=== PATIENT | female | born 1985 | race Caucasian/White ===

== ENCOUNTER 2017-02-26 11:46 | Emergency (ER) | payer OTHER ==
[2017-02-26 12:01] VITALS: TEMP 98
--- NOTE | 2017-02-26 13:11 | XR ---
EXAMINATION TYPE: XR knee complete RT DATE OF EXAM: 02/26/2017 12:55 PM COMPARISON: NONE HISTORY: Right knee pain after fall on the patient's back a couple days prior. TECHNIQUE: 3 views of the right knee were performed. FINDINGS: Small suprapatellar joint effusion is noted. There is no evidence of fracture or dislocatio n. Bone mineralization is unremarkable for the patient's age. No suspicious osseous lesion is identif ied. IMPRESSION: No evidence of fracture or dislocation.
--- NOTE | 2017-02-26 13:13 | ED ---
Lower Extremity Injury HPI - General Chief Complaint: Extremity Injury, Lower Stated Complaint: Fall/6 months preg Time Seen by Provider: 02/26/17 12:27 Source: patient Mode of arrival: wheelchair Limitations: no limitations - History of Present Illness Initial Comments: Patient is a 31-year-old female stating she is 6 months , presenting to the emergency department with complains of right knee pain. Patient states she had an episode of lightheadedness 2 days ago which went from a sitting to a standing position and felt her legs giving out. Patient denies loss of consciousness but states she fell backwards and somehow injured her right knee. Patient complains of pain especially to the medial aspect of her right knee associated with some swelling. Patient states that pain has gotten progressively worse over the last couple days and patient has been unable to be a weight on her right lower extremity. Patient denies previous injury or surgery to her right knee. Patient denies previous episode of lightheadedness during her . Patient denies recent illness, fevers, shortness of breath, chest pain, abdominal pain, diarrhea or constipation, urinary urgency, hematuria, or dysuria. Patient denies numbness or tingling. Patient states she has been elevating her right knee as much as possible and used ice for comfort along with some Tylenol. Patient states she can't take ibuprofen secondary to be . - Related Data Home Medications Medication Instructions Recorded Confirmed ALPRAZolam [Xanax] mg PO Q8HR 05/01/16 05/01/16 Lisinopril [Prinivil] 5 mg PO DAILY 05/01/16 05/01/16 Allergies Allergy/AdvReac Type Severity Reaction Status Date / Time No Known Allergies Allergy Verified 02/26/17 12:01 Review of Systems ROS Statement: Those systems with pertinent positive or pertinent negative responses have been documented in the HPI. ROS Other: All systems not noted in ROS Statement are negative. Past Medical History Past Medical History: Hypertension Additional Past Medical History / Comment(s): Chronic back pain History of Any Multi-Drug Resistant Organisms: None Reported Past Surgical History: Hernia Repair Past Psychological History: Anxiety Smoking Status: Current every day smoker Past Alcohol Use History: Occasional Past Drug Use History: None Reported General Exam Limitations: no limitations General appearance: alert, in no apparent distress Head exam: Present: atraumatic, normocephalic, normal inspection Eye exam: Present: normal appearance. Absent: scleral icterus, conjunctival injection ENT exam: Present: normal exam, mucous membranes moist, TM's normal bilaterally , normal external ear exam Neck exam: Present: normal inspection, full ROM. Absent: tenderness, lymphadenopathy Respiratory exam: Present: normal lung sounds bilaterally. Absent: respiratory distress, wheezes, rales, rhonchi Cardiovascular Exam: Present: regular rate, normal rhythm, normal heart sounds GI/Abdominal exam: Present: soft, normal bowel sounds. Absent: distended, tenderness Right Upper Leg exam: Present: normal inspection, full ROM. Absent: tenderness, swelling Knee exam: Present: tenderness (Tenderness to medial aspect of right knee), swelling (Mild swelling to medial aspect of right knee). Absent: full ROM ( Secondary to pain), ecchymosis, deformity Lower Leg exam: Present: normal inspection, full ROM. Absent: tenderness, swelling Ankle exam: Present: normal inspection, full ROM. Absent: tenderness, swelling Foot/Toe exam: Present: normal inspection, full ROM. Absent: tenderness, swelling Neurovascular tendon exam: Present: no vascular compromise. Absent: pulse deficit, abnormal cap refill, motor deficit, sensory deficit, tendon deficit, extremity cold to touch, pallor, abnormal 2-point discrimination, decreased fine /light touch, foot drop, significant pain with passive ROM of distal joint Gait: not tested/not observed Back exam: Present: normal inspection, full ROM. Absent: tenderness, paraspinal tenderness, vertebral tenderness Neurological exam: Present: alert, oriented X3, other (No focal deficits noted) Psychiatric exam: Present: normal affect, normal mood Skin exam: Present: warm, dry, intact, normal color. Absent: rash Course Vital Signs 02/26/17 12:00 Temperature 98.0 F Pulse Rate 77 Respiratory 20 Rate Blood Pressure 130/59 O2 Sat by Pulse 100 Oximetry Medical Decision Making - Medical Decision Making Right knee strain with small joint effusion. Patient placed in a knee immobilizer and provided prescription for crutches. Patient instructed to continue icing and elevating the wrist directed. Continue Tylenol for pain. Patient instructed to follow-up with orthopedic surgeon. Patient started to return to the emergency department if symptoms do not improve or get worse. - Radiology Data Radiology results: report reviewed Right knee x-ray: Small suprapatellar joint effusion is noted. No evidence of fracture dislocation. No suspicious osseous lesion is identified. Disposition Clinical Impression: Strain of right knee, Joint effusion of knee Disposition: HOME SELF-CARE Condition: Good Instructions: Knee Sprain (ED) Additional Instructions: Avoid activity that causes pain Ice 20 minutes 4 times a day usually for 2-3 days Keep elevated as much as possible 24-48 hours. Use knee immobilizer until pain subsides, remove when not ambulatory Continue Tylenol for pain. Return to the emergency department with symptoms of increased swelling, pain, numbness, tingling, or foot feeling cold to touch. Follow-up with primary service and orthopedic service as directed. Referrals: June Canchola MD [Primary Care Provider] - 1-2 days Neymar Cantu DO [Doctor of Osteopathic Medicine] - 1-2 days Time of Disposition: 13:21
[2017-02-26 13:34] VITALS: BP 124/61; PULSE 78; RESP 16
== END 2017-02-26 13:34 | disposition home or self-care (01) ==
LOC: EC 11:46
DX: O9A.212 Injury, poisoning and certain other consequences of external causes complicating pregnancy, second trimester (principal); S86.911A Strain of unspecified muscle(s) and tendon(s) at lower leg level, right leg, initial encounter; O99.89 Other specified diseases and conditions complicating pregnancy, childbirth and the puerperium; M25.461 Effusion, right knee; O16.2 Unspecified maternal hypertension, second trimester; O99.342 Other mental disorders complicating pregnancy, second trimester; F41.9 Anxiety disorder, unspecified; O99.332 Smoking (tobacco) complicating pregnancy, second trimester; F17.200 Nicotine dependence, unspecified, uncomplicated; Z3A.24 24 weeks gestation of pregnancy; Z79.899 Other long term (current) drug therapy; W19.XXXA Unspecified fall, initial encounter
CPT/HCPCS: 99283; 73562; L1830

== ENCOUNTER 2019-01-11 19:07 | Outpatient (CLI) | payer OTHER ==
[2019-01-11] MEDS ORDERED: LACTATED RINGERS 1,000 ML IV SCH (19:45)
[2019-01-11 19:53] LABS: Appearance,Urine Cloudy (Clear); Bacteria,Urine Rare /hpf; Bilirubin,Urine Negative (Negative); Blood,Urine Negative (Negative); Color,Urine Yellow; Glucose,Urine (UA) Negative (Negative); Ketones,Urine Negative (Negative); Leukocyte Esterase,Urine Negative (Negative); Mucus,Urine Few /hpf; Nitrite,Urine Negative (Negative); Protein,Urine Trace (Negative); RBC,Urine 3 /hpf (0-5); Specific Gravity,Urine 1.023 (1.001-1.035); Squamous Epithelial Cell,Urine 2 /hpf (0-4); WBC,Urine 3 /hpf (0-5)
[2019-01-11 20:31] VITALS: RESP 18; TEMP 97.5
[2019-01-11 20:45] VITALS: BP 121/58; PULSE 80
--- NOTE | 2019-02-09 11:36 | P.MSEPDOC ---
Presenting Problems - Arrival Data Date of Arrival on Unit: 01/11/19 Time of Arrival on Unit: 19:13 Mode of Transport: Wheelchair - Complaint OB-Reason for Admission/Chief Complaint: Pain Comment: abd and back pain Medical History - Information : 5 Para: 4 Term: 4 : 0 Abortions: Spontaneous or Elective: 0 Number of Living Children: 4 - Gestational Age Gestational Age by WESLY (wks/days): 20 Weeks and 4 Days - History Complications: Smoker Review of Systems - Review of Systems Constitutional: No problems Breast: No problems ENT: No problems Cardiovascular: No problems Respiratory: No problems Gastrointestinal: No problems Genitourinary: No problems Musculoskeletal: No problems Neurological: No problems Skin: No problems Vital Signs - Temperature Temperature: 97.5 F Temperature Source: Temporal Artery Scan - Pulse Right Pulse Rate: 80 Pulse Assessment Method: Automatic Cuff - Respirations Respiratory Rate: 18 - Blood Pressure Right Arm Blood Pressure: 121/58 Blood Pressure Mean: 79 Blood Pressure Source: Automatic Cuff Medical Screen Scoring (Pre) - Cervical Exam Dilation: Exam Deferred Effacement: Exam Deferred Membranes: Intact - Uterine Contractions Frequency: N/A Duration: N/A Intensity: N/A - Maternal Vital Signs Maternal Temperature: N/A Maternal Blood Pressure: N/A Signs of Preeclampsia: N/A Maternal Respirations: N/A - Pain Assessment Pain Location and Character: Left, Lower, Back, Abdomen Pain Scale Used: Numeric (1 - 10) Pain Intensity: 5 Pain Management Goal: 3 Pain Description: *Acute, Aching, Sore Pain Radiation Location: 0 Pain Frequency: Constant Pain Duration: 2 Pain Duration Units: Hours Pain Behavior: Vocalization Effects of Pain: 0 Pain Aggravating Factors: Activity, Standing - Maternal Trauma Maternal Trauma: N/A - Assessment Baseline FHR: 140s - Total Score Total Score (Pre): 0 - Level of Risk Level of Risk: Low (0-5) Physician Notification (Pre) - Physician Notified Physician Notified Date: 01/11/19 Physician Notified Time: 19:25 Physician/Practitioner Notifed:: Dr Barker - Notification Comment Comment: per Emma Duncan RN- reported on pts c/o pain and pressure, hx. Orders to obtain UA, start IV give 1L bolus, and do SVE. Call wtih further orders or needs. Medical Screen Scoring (Post) - Cervical Exam Dilation: 0 cm = 0 Membranes: Intact - Uterine Contractions Frequency: N/A Duration: N/A Intensity: N/A - Maternal Vital Signs Maternal Temperature: N/A Maternal Blood Pressure: N/A Signs of Preeclampsia: N/A Maternal Respirations: N/A - Total Score Total Score (Post): 0 - Post Treatment Level of Risk Post Treatment Level of Risk: Low (0-5) Physician Notification (Post) - Physician Notified Physician Notified Date: 01/11/19 Physician Notified Time: 19:38 Physician/Practitioner Notified:: Dr Barker - Notification Comment Comment: A [place] RN on phone with Dr Barker. Reported on abd soft and non tender, IV. fluids status, SVE closed, UA results. Orders to d/c home with instructions after IV infused. Keep scheduled appt in office. Disposition - Disposition OB Disposition: Discharge to home Discharge Date: 01/11/19 Discharge Time: 21:00 I agree with the RN Medical Screening Exam: Yes Risk & Benefit of care provided described in d/c instruction: Yes Diagnosis: UNSPECIFIED ABDOMINAL PAIN
== END 2019-01-11 21:00 | disposition home or self-care (01) ==
LOC: FBPOP 19:07
PROVIDERS: ATTEND Obstetrics & Gynecology Obstetrics
DX: O99.89 Other specified diseases and conditions complicating pregnancy, childbirth and the puerperium (principal); O99.332 Smoking (tobacco) complicating pregnancy, second trimester; R10.32 Left lower quadrant pain; F17.200 Nicotine dependence, unspecified, uncomplicated; Z3A.20 20 weeks gestation of pregnancy
CPT/HCPCS: 96360; 81001; G0463; 99214

== ENCOUNTER → 2019-02-26 | Outpatient (CLI) | payer OTHER ==
[2019-02-26 13:08] LABS: HCT 33.1 % (34.0-46.0); HGB 10.9 gm/dL (11.4-16.0); MCH 31.7 pg (25.0-35.0); MCHC 33.1 g/dL (31.0-37.0); Mean Platelet Volume 6.8; Platelet Count 267 k/uL (150-450); RBC 3.45 m/uL (3.80-5.40); WBC 15.5 k/uL (3.8-10.6)
== END | disposition home or self-care (01) ==
LOC: LABWHC1 11:32
PROVIDERS: ATTEND Obstetrics & Gynecology Obstetrics
DX: Z36.9 Encounter for antenatal screening, unspecified (principal)
CPT/HCPCS: 36415; 82950; 85027

== ENCOUNTER 2019-05-20 09:52 | Inpatient (IN) | payer OTHER ==
[2019-05-17 14:21] VITALS: BMI 46.5
[2019-05-20] MEDS ORDERED: CITRIC ACID-SODIUM CITRATE 15 ML CUP PO ONE (11:03)
[2019-05-20] MEDS ORDERED: CARBOPROST TROMETHAMINE 250 MCG/ML 1 ML AMP IM PRN (11:03)
[2019-05-20] MEDS ORDERED: ceFAZolin IN SWFI 2 GM/20 ML SYRINGE IVP ONE (11:03)
[2019-05-20] MEDS ORDERED: METHYLERGONOVINE 0.2 MG/ML 1 ML AMP IM PRN (11:03)
[2019-05-20 11:23] LABS: Basophils # (A) 0.1 k/uL (0-0.2); Basophils % (A) 0 %; Eosinophils # (A) 0.3 k/uL (0-0.7); Eosinophils % (A) 2 %; HCT 34.7 % (34.0-46.0); HGB 11.5 gm/dL (11.4-16.0); Lymphocytes # (A) 1.8 k/uL (1.0-4.8); Lymphocytes % (A) 10 %; MCH 30.5 pg (25.0-35.0); MCHC 33.3 g/dL (31.0-37.0); MCV 91.6 fL (80.0-100.0); Mean Platelet Volume 7.7; Monocytes # (A) 0.6 k/uL (0-1.0); Monocytes % (A) 3 %; Neutrophils # (A) 15.5 k/uL (1.3-7.7); Neutrophils % (A) 84 %; Platelet Count 321 k/uL (150-450); RBC 3.79 m/uL (3.80-5.40); RDW 14.1 % (11.5-15.5); WBC 18.4 k/uL (3.8-10.6)
[2019-05-20] MEDS: LACTATED RINGERS 1,000 ML IV SCH ×3 (11:24→15:02)
[2019-05-20 11:33] LABS: Glucose,Whole Blood 95 mg/dL (75-99)
[2019-05-20] MEDS ORDERED: NALBUPHINE 10 MG/ML (1 ML AMP) ONE (12:05)
[2019-05-20] MEDS ORDERED: OXYTOCIN 10 UNIT/ML 1 ML VIAL ONE (12:05)
[2019-05-20] MEDS ORDERED: LACTATED RINGERS 1,000 ML BAG IV ONE (12:05)
[2019-05-20] MEDS ORDERED: MORPHINE SULFATE (PF) 0.3 MG/0.3 ML SYR ONE (12:05)
[2019-05-20] MEDS ORDERED: ONDANSETRON 4 MG/2 ML VIAL ONE (12:05)
[2019-05-20] MEDS ORDERED: diphenhydrAMINE 50 MG/ML 1 ML VIAL IVP PRN ×3 (12:42→12:46)
[2019-05-20] MEDS ORDERED: KETOROLAC 30 MG/ML 1 ML VIAL IVP PRN (12:42)
[2019-05-20] MEDS ORDERED: ONDANSETRON 4 MG/2 ML VIAL IVP PRN ×2 (12:42→12:46)
[2019-05-20] MEDS ORDERED: NALOXONE 0.4 MG/ML 1 ML VIAL IV PRN ×2 (12:42→12:46)
[2019-05-20] MEDS ORDERED: HYDROmorphone 0.5 MG/0.5 ML SYRINGE IVP PRN (12:42)
[2019-05-20] MEDS ORDERED: ACETAMINOPHEN IV (For NPO) 1,000 MG in EMPTY BAG 1 BAG IVPB ONE (12:46)
[2019-05-20] MEDS ORDERED: METOCLOPRAMIDE 5 MG/ML 2 ML VIAL IVP PRN (12:46)
[2019-05-20] MEDS ORDERED: diphenhydrAMINE 50 MG CAP PO PRN (12:46)
[2019-05-20] MEDS ORDERED: ACETAMINOPHEN TAB 325 MG TAB PO PRN (12:46)
[2019-05-20] MEDS ORDERED: diphenhydrAMINE 25 MG CAP PO PRN (12:46)
[2019-05-20] MEDS ORDERED: ZOLPIDEM 5 MG TAB PO PRN (12:46)
[2019-05-20] MEDS ORDERED: IBUPROFEN IV 800 MG in SODIUM CHLORIDE 0.9% 250 ML IV ONE (12:47)
--- NOTE | 2019-05-20 12:53 | P.HPOB ---
History of Present Illness H&P Date: 05/20/19 Chief Complaint: IUP @ 39 0/7 weeks, unstable lie This is a 34-year-old 6 para 4014 at 39-0/7 weeks that presents to labor and delivery for primary with tubal ligation. has been noted to be an unstable lie mostly transverse. Patient elected primary with tubal as she is done with childbearing. Of note patient has been diagnosed with gestational diabetes with this and it has been poorly controlled despite diabetes education. Patient has a history of depression which is controlled with Prozac. Patient has been receiving routine care with myself. Next On bloodwork should a blood type of A+, rubella immune, hepatitis B surface antigen negative, RPR nonreactive, HIV negative, GBS was noted to be positive. Review of Systems Constitutional: Reports fatigue, Denies chills, Denies fever Ears, nose, mouth and throat: Denies headache Cardiovascular: Reports leg edema Respiratory: Denies dyspnea Gastrointestinal: Denies constipation, Denies diarrhea, Denies nausea, Denies vomiting Genitourinary: Reports Past Medical History Past Medical History: Hypertension Additional Past Medical History / Comment(s): Chronic back pain, gestational diabetes-diet control, high BP couple yrs ago, restless legs, varicose veins History of Any Multi-Drug Resistant Organisms: None Reported Past Surgical History: Hernia Repair Past Anesthesia/Blood Transfusion Reactions: Previous Problems w/ Anesthesia, Motion Sickness Additional Past Anesthesia/Blood Transfusion Reaction / Comment(s): spinal headache after epidural- 1st epidural only worked on one side, another epidural did not work Past Psychological History: Anxiety, Depression Additional Psychological History / Comment(s): prozac po. pt has not taken for about 3 weeks Smoking Status: Current every day smoker Past Alcohol Use History: None Reported Additional Past Alcohol Use History / Comment(s): 1/2 PPD, has smoked since age 15 Past Drug Use History: None Reported - Past Family History Mother Family Medical History: Cancer, Coronary Artery Disease (CAD) Father Family Medical History: Cancer, Coronary Artery Disease (CAD) Medications and Allergies Home Medications Medication Instructions Recorded Confirmed Type FLUoxetine HCL [PROzac] 40 mg PO HS 05/17/19 05/20/19 History Cephalexin [Keflex] 500 mg PO 05/20/19 History Allergies Allergy/AdvReac Type Severity Reaction Status Date / Time No Known Allergies Allergy Verified 05/17/19 14:11 Exam Osteopathic Statement: *. No significant issues noted on an osteopathic structural exam other than those noted in the History and Physical/Consult. Vital Signs Temp Pulse Resp BP Pulse Ox 05/20/19 11:03 97.3 F L 101 H 18 131/67 96 Targeted physical exam is performed and the state in general this a well- nourished well-developed female in no acute distress, breathing is noted to be nonlabored her heart has a regular rate and rhythm abdomen is noted to be gravid and large for gestational age, heart tones were noted to be reactive and she is not rachel. Cervical exam is deferred Results Result Diagrams: 05/20/19 10:30 Abnormal Lab Results - Last 24 Hours (Table) 05/20/19 Range/Units 10:30 WBC 18.4 H (3.8-10.6) k/uL RBC 3.79 L (3.80-5.40) m/uL Neutrophils # 15.5 H (1.3-7.7) k/uL Assessment and Plan (1) Term Current Visit: Yes Status: Acute Code(s): Z34.90 - ENCNTR FOR SUPRVSN OF NORMAL , UNSP, UNSP TRIMESTER SNOMED Code(s): 09852756 (2) Gestational diabetes Current Visit: Yes Status: Acute Code(s): O24.419 - GESTATIONAL DIABETES MELLITUS IN , UNSP CONTROL SNOMED Code(s): 28462176 (3) LGA (large for gestational age) fetus Current Visit: Yes Status: Acute Code(s): PQB3490 - SNOMED Code(s): 392927876 (4) Family planning Current Visit: Yes Status: Acute Code(s): Z30.09 - ENCOUNTER FOR OTH GENERAL CNSL AND ADVICE ON CONTRACEPTION SNOMED Code(s): 926467941 (5) Unstable lie of fetus Current Visit: Yes Status: Acute Code(s): O32.0XX0 - MATERNAL CARE FOR UNSTABLE LIE, NOT APPLICABLE OR UNSP SNOMED Code(s): 94170097 Plan: Patient is admitted for primary with tubal ligation given unstable lie and poorly controlled gestational diabetes. Patient is counseled on the surgery and all questions are answered. Risks are reviewed including but not limited to infection, bleeding, damage to bladder, bowel, ureteric injury. Jurgen méndez states understanding and was taken back to the operating suite by anesthesia.
--- NOTE | 2019-05-20 12:57 | P.OP ---
Date of Procedure: 05/20/19 Preoperative Diagnosis: IUP at 39-0/7 weeks, poorly controlled gestational diabetes, unstable lie, family status complete Postoperative Diagnosis: Same plus face presentation Procedure(s) Performed: Primary low transverse section Anesthesia: spinal Surgeon: Adriana Barker Alarm Installation Technician #1: Taylor Ramírez Estimated Blood Loss (ml): 800 IV fluids (ml): 1,000 Urine output (ml): 200 Pathology: other (Placenta) Condition: stable Disposition: observation Indications for Procedure: Unstable lie, poorly controlled gestational babies with a large for gestational age fetus Operative Findings: Normal uterus tubes and ovaries were appreciated male infant delivered at 1220, weight of 9 lbs. 1 oz. with Apgars of 9 and 9 at one and 5 minutes respectively. Description of Procedure: Patient was taken back to the operating suite where spinal anesthesia was placed by the anesthesia department. She was then prepped and draped in normal sterile fashion in the dorsal supine position. A Pfannenstiel skin incision was then made and carried through the underlying layer of fascia. The fascia and then incised in the midline and extended laterally. The anterior aspect of the fascial incision was then grasped with [place] clamps, elevated and underlying rectus muscle was dissected off sharply. Attention was then turned to the inferior aspect of the fascial incision which was grasped with Lewis clamps, elevated and underlying rectus muscles was off once again. The edges muscles were in the midline the peritoneum was identified and entered. This incision was then extended superiorly and inferiorly with good visualization the bladder. Bladder blade was then inserted and the vesicouterine peritoneum was identified and a bladder flap was then created. Hysterotomy incision was then made and the infant was encountered in the uterus and a face presentation converted to vertex delivered in the usual fashion the umbilical cord was then doubly clamped and cut and handed off to awaiting RN. The placenta was then delivered manually the uterus was cleared of all clots and debris. The uterine incision was then closed with 0 Vicryl in a running locked fashion. Hemostasis was appreciated. Attention was then turned to the patient's fallopian tubes the [place] clips were then placed on each tube with good blanching of the tube being noted on both sides. The hysterotomy incision was inspected once again bleeding was noted on the right-hand side of the uterine incision therefore a [id number] suture was used to obtain h emostasis. The uterus was then returned to the abdomen. Once again the hysterotomy site was inspected hemostasis was appreciated the gutters were cleared of all clots and debris. The fascia was then closed with 0 Vicryl in a running fashion from one lateral edge the midline and the other lateral edge the midline. Subcutaneous tissue was then irrigated and hemostasis was appreciated, this continues tissue was then closed with 3-0 Vicryl in a running fashion. The skin was then closed with 4-0 Vicryl in a subcuticular fashion. Steri-Strips and sterile dressings were applied. All counts are correct 2, patient and infant tolerated delivery well
[2019-05-20] MEDS: IBUPROFEN 600 MG TAB PO PRN (20:58)
[2019-05-20] MEDS: HYDROcodone/APAP 5-325MG 1 EACH TAB PO PRN (22:10)
[2019-05-21] MEDS: SENNOSIDES-DOCUSATE SODIUM 1 EACH TAB PO SCH ×3 (00:42→19:54)
[2019-05-21] MEDS: LACTATED RINGERS 1,000 ML IV SCH ×4 (00:43→06:57)
[2019-05-21] MEDS: HYDROcodone/APAP 5-325MG 1 EACH TAB PO PRN ×5 (03:00→22:07)
[2019-05-21] MEDS: FLUoxetine HCL 20 MG CAP PO SCH ×2 (03:06→21:01)
--- NOTE | 2019-05-21 05:50 | P.PN ---
Progress Note - Text Progress Note Date: 05/21/19 Patient doing well. Ambulating without paresthesia or weakness. Denies headache. Pain controlled. Spinal site clean and dry A/P POD#1 s/p with spinal duramorph - doing well
[2019-05-21 07:15] LABS: Basophils # (A) 0.1 k/uL (0-0.2); Basophils % (A) 0 %; Eosinophils # (A) 0.3 k/uL (0-0.7); Eosinophils % (A) 2 %; HCT 32.3 % (34.0-46.0); HGB 10.1 gm/dL (11.4-16.0); Lymphocytes # (A) 1.8 k/uL (1.0-4.8); Lymphocytes % (A) 13 %; MCH 29.9 pg (25.0-35.0); MCHC 31.3 g/dL (31.0-37.0); MCV 95.5 fL (80.0-100.0); Mean Platelet Volume 7.2; Monocytes # (A) 0.5 k/uL (0-1.0); Monocytes % (A) 4 %; Neutrophils # (A) 10.8 k/uL (1.3-7.7); Neutrophils % (A) 79 %; Platelet Count 241 k/uL (150-450); RBC 3.38 m/uL (3.80-5.40); RDW 13.3 % (11.5-15.5); WBC 13.7 k/uL (3.8-10.6)
--- NOTE | 2019-05-21 08:31 | P.PNOBGPC ---
Subjective - Subjective Principal diagnosis: POD 1 LTCS Interval history: Patient is doing well. She states her pain is controlled this morning with oral [place]/ibuprofen. She is ambulating and voiding without difficulty. remains in the nursery on high flow. She is tolerating a regular diet without nausea or vomiting. Patient reports: Reports appetite normal, Reports voiding normally, Reports pain well controlled, Reports ambulating normally [place]: doing well Objective - Vital Signs Latest vital signs: Vital Signs Temp Pulse Pulse Pulse Resp BP Pulse Ox 05/21/19 07:59 98.6 F 69 16 101/56 05/21/19 07:00 98.6 F 69 16 101/56 05/21/19 05:00 16 97 05/21/19 04:00 97.7 F 65 16 97/51 96 05/21/19 03:00 16 05/21/19 01:00 16 98 05/21/19 00:00 97.7 F 69 58 L 16 88/41 98 05/20/19 23:00 16 05/20/19 21:00 16 98 05/20/19 20:00 98.1 F 61 16 104/56 05/20/19 19:00 18 05/20/19 17:42 97 05/20/19 16:45 16 05/20/19 15:42 98.1 F 69 16 114/70 98 05/20/19 14:49 68 16 114/60 98 05/20/19 14:19 72 16 118/64 05/20/19 13:49 73 16 117/71 05/20/19 13:42 69 16 129/78 97 05/20/19 13:34 77 16 134/67 97 05/20/19 13:08 75 16 136/63 97 05/20/19 12:49 97.2 F L 75 16 134/63 05/20/19 12:42 97.2 F L 75 16 134/63 97 05/20/19 11:03 97.3 F L 101 H 18 131/67 96 Intake and Output 05/20/19 05/21/19 05/21/19 22:59 06:59 14:59 Intake Total 480 Output Total 600 650 Balance -600 -650 480 Intake: Oral 480 Output: Urine 600 650 Uretheral (Glass) 300 Other: Voiding Method Indwelling Catheter Indwelling Catheter # Voids 1 - Exam Extremities: Present: normal, edema Abdomen: Present: normal appearance Incision: Present: normal, dry, intact Uterus: Present: normal, firm - Labs Labs: Abnormal Lab Results - Last 24 Hours (Table) 05/20/19 05/21/19 Range/Units 10:30 06:54 WBC 18.4 H 13.7 H (3.8-10.6) k/uL RBC 3.79 L 3.38 L (3.80-5.40) m/uL Hgb 10.1 L (11.4-16.0) gm/dL Hct 32.3 L (34.0-46.0) % Neutrophils # 15.5 H 10.8 H (1.3-7.7) k/uL Assessment and Plan (1) Term Current Visit: Yes Status: Acute Code(s): Z34.90 - ENCNTR FOR SUPRVSN OF NORMAL , UNSP, UNSP TRIMESTER SNOMED Code(s): 82675894 (2) Gestational diabetes Current Visit: Yes Status: Acute Code(s): O24.419 - GESTATIONAL DIABETES MELLITUS IN , UNSP CONTROL SNOMED Code(s): 90979744 (3) LGA (large for gestational age) fetus Current Visit: Yes Status: Acute Code(s): VVL6484 - SNOMED Code(s): 870039086 (4) Family planning Current Visit: Yes Status: Acute Code(s): Z30.09 - ENCOUNTER FOR OT GENERAL CNSL AND ADVICE ON CONTRACEPTION SNOMED Code(s): 222783072 (5) Unstable lie of fetus Current Visit: Yes Status: Acute Code(s): O32.0XX0 - MATERNAL CARE FOR UNSTABLE LIE, NOT APPLICABLE OR UNSP SNOMED Code(s): 82786905 (6) S/P section Current Visit: Yes Status: Acute Code(s): Z98.891 - HISTORY OF UTERINE SCAR FROM PREVIOUS SURGERY SNOMED Code(s): 505794793 Plan: Patient is doing well post operatively. She is ambulating and voiding without difficulty. She does struggle with some pain issues but states her pain is controlled with oral medication. She is encouraged to increase ambulation today. Will continue routine postoperative care
[2019-05-21] MEDS: IBUPROFEN 600 MG TAB PO PRN ×2 (10:20→19:54)
[2019-05-21] MEDS: SIMETHICONE 80 MG CHEWABLE PO PRN (19:55)
[2019-05-22] MEDS: HYDROcodone/APAP 5-325MG 1 EACH TAB PO PRN ×4 (03:35→22:50)
[2019-05-22] MEDS: IBUPROFEN 600 MG TAB PO PRN ×3 (06:28→19:00)
[2019-05-22] MEDS: SENNOSIDES-DOCUSATE SODIUM 1 EACH TAB PO SCH ×2 (08:10→20:59)
--- NOTE | 2019-05-22 08:29 | P.PNOBGPC ---
Subjective - Subjective Principal diagnosis: POD 2 LTCS with TL Interval history: Patient is ambulating and voiding without difficulty. She is tolerating a regular diet without nausea or vomiting. She is using [place]/Motrin for discomfort. She continues to complain of right lower quadrant pain as she did throughout the entire . remains in special care nursery Patient reports: Reports appetite normal, Reports voiding normally, Reports pain well controlled, Reports ambulating normally : doing well (in SCN on high flow oxygen) Objective - Vital Signs Latest vital signs: Vital Signs Temp Pulse Pulse Resp BP Pulse Ox 05/22/19 08:00 97.8 F 81 18 121/63 99 05/21/19 23:37 97.5 F L 77 18 117/63 97 05/21/19 16:00 98.1 F 83 18 118/63 96 05/21/19 12:31 97.9 F 70 14 100/55 Intake and Output 05/21/19 05/22/19 05/22/19 22:59 06:59 14:59 Output Total 0 Balance 0 Output: Stool 0 Other: # Voids 1 1 - Exam Extremities: Present: normal, edema Abdomen: Present: normal appearance, soft Incision: Present: normal, dry, intact Uterus: Present: normal, firm Assessment and Plan (1) Term Current Visit: Yes Status: Acute Code(s): Z34.90 - ENCNTR FOR SUPRVSN OF NORMAL , UNSP, UNSP TRIMESTER SNOMED Code(s): 73309354 (2) Gestational diabetes Current Visit: Yes Status: Acute Code(s): O24.419 - GESTATIONAL DIABETES MELLITUS IN , UNSP CONTROL SNOMED Code(s): 56691791 (3) LGA (large for gestational age) fetus Current Visit: Yes Status: Acute Code(s): GRE6512 - SNOMED Code(s): 599676566 (4) Family planning Current Visit: Yes Status: Acute Code(s): Z30.09 - ENCOUNTER FOR OTH GENERAL CNSL AND ADVICE ON CONTRACEPTION SNOMED Code(s): 476948722 (5) Unstable lie of fetus Current Visit: Yes Status: Acute Code(s): O32.0XX0 - MATERNAL CARE FOR UNSTABLE LIE, NOT APPLICABLE OR UNSP SNOMED Code(s): 89182559 (6) S/P section Current Visit: Yes Status: Acute Code(s): Z98.891 - HISTORY OF UTERINE SCAR FROM PREVIOUS SURGERY SNOMED Code(s): 916750271 Plan: We'll continue routine postoperative care. The right lower quadrant pain that she is experiencing she did experience throughout the entire . I suspect it is normal postoperative pain given her abdomen continues to be sat soft she is eating and voiding without difficulty. I did encourage her to increase ambulation today as I feel that will help her discomfort.
[2019-05-22] MEDS: FLUoxetine HCL 20 MG CAP PO SCH (21:00)
[2019-05-23] MEDS: IBUPROFEN 600 MG TAB PO PRN ×3 (00:53→19:41)
[2019-05-23] MEDS: HYDROcodone/APAP 5-325MG 1 EACH TAB PO PRN ×3 (08:31→22:12)
[2019-05-23] MEDS: SENNOSIDES-DOCUSATE SODIUM 1 EACH TAB PO SCH ×2 (08:31→22:08)
--- NOTE | 2019-05-23 08:33 | P.PNOBGPC ---
Subjective - Subjective Principal diagnosis: POD 3 LTCS with TL Interval history: Patient is continuing to improve, she is ambulating without difficulty and is using her binder. She notes lochia to be minimal. She is able to go outside to smoke despite are urge to discontinue this habit. She is tolerating regular diet without nausea or vomiting. Her pain is controlled with oral [place]/Motrin. Patient reports: Reports appetite normal, Reports voiding normally, Reports pain well controlled, Reports ambulating normally [facility]: doing well, in NICU Objective - Vital Signs Latest vital signs: Vital Signs Temp Pulse Pulse Resp BP Pulse Ox 05/23/19 00:00 98 F 79 18 120/56 99 05/22/19 16:00 98.4 F 91 18 121/67 - Exam Extremities: Present: edema Abdomen: Present: normal appearance, soft Incision: Present: normal, dry, intact Uterus: Present: normal, firm Assessment and Plan (1) Term Current Visit: Yes Status: Acute Code(s): Z34.90 - ENCNTR FOR SUPRVSN OF NORMAL , UNSP, UNSP TRIMESTER SNOMED Code(s): 02326157 (2) Gestational diabetes Current Visit: Yes Status: Acute Code(s): O24.419 - GESTATIONAL DIABETES MELLITUS IN , UNSP CONTROL SNOMED Code(s): 30362890 (3) LGA (large for gestational age) fetus Current Visit: Yes Status: Acute Code(s): FGF3027 - SNOMED Code(s): 715948173 (4) Family planning Current Visit: Yes Status: Acute Code(s): Z30.09 - ENCOUNTER FOR OTH GENERAL CNSL AND ADVICE ON CONTRACEPTION SNOMED Code(s): 538968243 (5) Unstable lie of fetus Current Visit: Yes Status: Acute Code(s): O32.0XX0 - MATERNAL CARE FOR UNSTABLE LIE, NOT APPLICABLE OR UNSP SNOMED Code(s): 65804592 (6) S/P section Current Visit: Yes Status: Acute Code(s): Z98.891 - HISTORY OF UTERINE SCAR FROM PREVIOUS SURGERY SNOMED Code(s): 451718093 Plan: We'll continue routine postoperative care. The right lower quadrant pain that she is experiencing she did experience throughout the entire . I suspect it is normal postoperative pain given her abdomen continues to be sat soft she is eating and voiding without difficulty. I did encourage her to increase ambulation today as I feel that will help her discomfort. On this postop day #3 we'll continue routine postoperative care and anticipate discharge home tomorrow.
[2019-05-23] MEDS: FLUoxetine HCL 20 MG CAP PO SCH (22:08)
[2019-05-23] MEDS: SIMETHICONE 80 MG CHEWABLE PO PRN (22:15)
[2019-05-24] MEDS: IBUPROFEN 600 MG TAB PO PRN ×2 (07:39→13:58)
[2019-05-24] MEDS: SENNOSIDES-DOCUSATE SODIUM 1 EACH TAB PO SCH (07:40)
--- NOTE | 2019-05-24 08:18 | P.DS ---
Providers Date of admission: 05/20/19 09:52 Expected date of discharge: 05/24/19 Attending physician: Adriana Barker Primary care physician: Sushant Watkins - Discharge Diagnosis(es) (1) Term Current Visit: Yes Status: Acute (2) Gestational diabetes Current Visit: Yes Status: Acute (3) LGA (large for gestational age) fetus Current Visit: Yes Status: Acute (4) Family planning Current Visit: Yes Status: Acute (5) Unstable lie of fetus Current Visit: Yes Status: Acute (6) S/P section Current Visit: Yes Status: Acute Hospital Course: This is a 34-year-old 6 para 4014 that presented to labor and delivery at 39-0/7 weeks for primary with tubal ligation. Patient had a noted unstable lie of her fetus for most of the . Patient was requesting C- section with tubal ligation as she is done with childbearing. Patient was diagnosed with gestational diabetes during this and was poorly controlled despite numerous attempts at dietary counseling. For further details please see the dictated H&P. Patient was admitted to labor and delivery was performed without difficulty for further details on the please see the operative report. Patient delivered a viable male at 1220, weight of 9 lbs. 1 oz. with Apgars of 9 and 9 at one and 5 minutes respectively. Patient's postoperative course has been essentially uneventful. Initially the first 2 days she did note right lower quadrant pain which was consistent with the pain that she had throughout the and was where the head had been for the last few weeks. Patient was given an abdominal binder and was noted to be ambulating and voiding without difficulty. She was able to go outside and smoke despite our request that she discontinue. She is tolerating a regular diet without nausea or vomiting and she is using [place] and Motrin for discomfort. She is bottle feeding. The infant has been in special care nursery with some breathing difficulties and on high flow oxygen. Town Administrator is following. Patient Condition at Discharge: Good Plan - Discharge Summary New Discharge Prescriptions: No Action FLUoxetine HCL [PROzac] 40 mg PO HS Cephalexin [Keflex] 500 mg PO Discharge Medication List FLUoxetine HCL [PROzac] 40 mg PO HS 05/17/19 [History] Cephalexin [Keflex] 500 mg PO 05/20/19 [History] Follow up Appointment(s)/Referral(s): Adriana Barker DO [Doctor of Osteopathic Medicine] - 2 Weeks Patient Instructions/Handouts: (DC), (GEN) Discharge Disposition: HOME SELF-CARE
[2019-05-24] MEDS: HYDROcodone/APAP 5-325MG 1 EACH TAB PO PRN (11:06)
[2019-05-24 16:07] VITALS: BP 132/72; PULSE 80; RESP 16; TEMP 98.3
== END 2019-05-24 18:15 | disposition home or self-care (01) | DRG 785 ==
LOC: 4FBP 09:52
PROVIDERS: ADMIT Obstetrics & Gynecology Obstetrics; ATTEND Obstetrics & Gynecology Obstetrics
PROC: 0UL70CZ Occlusion of Bilateral Fallopian Tubes with Extraluminal Device, Open Approach (ICD-10-PCS; 2019-05-20)
PROC: 10D00Z1 Extraction of Products of Conception, Low, Open Approach (ICD-10-PCS; principal; 2019-05-20 12:00)
DX: O32.3XX0 Maternal care for face, brow and chin presentation, not applicable or unspecified (principal); O32.2XX0 Maternal care for transverse and oblique lie, not applicable or unspecified; O24.420 Gestational diabetes mellitus in childbirth, diet controlled; O36.63X0 Maternal care for excessive fetal growth, third trimester, not applicable or unspecified; O99.334 Smoking (tobacco) complicating childbirth; F17.210 Nicotine dependence, cigarettes, uncomplicated; Z30.2 Encounter for sterilization; Z37.0 Single live birth; Z3A.39 39 weeks gestation of pregnancy; O99.344 Other mental disorders complicating childbirth; F32.9 Major depressive disorder, single episode, unspecified; G25.81 Restless legs syndrome; F41.9 Anxiety disorder, unspecified; G89.29 Other chronic pain; M54.9 Dorsalgia, unspecified; I83.90 Asymptomatic varicose veins of unspecified lower extremity; Z71.6 Tobacco abuse counseling; Z79.899 Other long term (current) drug therapy; Z86.79 Personal history of other diseases of the circulatory system; Z82.49 Family history of ischemic heart disease and other diseases of the circulatory system; Z80.9 Family history of malignant neoplasm, unspecified
CPT/HCPCS: 85025; 86850; 86900; 86901; 88307

== ENCOUNTER 2019-05-30 19:22 | Emergency (ER) | payer OTHER ==
[2019-05-30] MEDS ORDERED: SODIUM CHLORIDE 0.9% 1,000 ML IV STA (19:52)
[2019-05-30] MEDS ORDERED: diphenhydrAMINE 50 MG/ML 1 ML VIAL IVP STA (19:52)
[2019-05-30] MEDS ORDERED: KETOROLAC 30 MG/ML 1 ML VIAL IVP STA (19:52)
[2019-05-30] MEDS ORDERED: METOCLOPRAMIDE 5 MG/ML 2 ML VIAL IVP STA (19:52)
[2019-05-30 20:26] LABS: Basophils # (A) 0.1 k/uL (0-0.2); Basophils % (A) 1 %; Eosinophils # (A) 0.5 k/uL (0-0.7); Eosinophils % (A) 5 %; HGB 12.2 gm/dL (11.4-16.0); Lymphocytes # (A) 2.6 k/uL (1.0-4.8); Lymphocytes % (A) 23 %; MCH 31.7 pg (25.0-35.0); Monocytes # (A) 0.4 k/uL (0-1.0); Monocytes % (A) 4 %; Neutrophils # (A) 7.5 k/uL (1.3-7.7); Neutrophils % (A) 67 %; Platelet Count 434 k/uL (150-450); RBC 3.85 m/uL (3.80-5.40); RDW 14.9 % (11.5-15.5); WBC 11.3 k/uL (3.8-10.6)
[2019-05-30 20:29] LABS: ALT 20 U/L (9-52); AST 20 U/L (14-36); African American GFR (CKD) >90 (>60 ml/min/1.73 sqM); Albumin 3.8 g/dL (3.5-5.0); Alkaline Phosphatase 91 U/L (38-126); Anion Gap 10 mmol/L; Blood Urea Nitrogen 19 mg/dL (7-17); Calcium 9.1 mg/dL (8.4-10.2); Carbon Dioxide 24 mmol/L (22-30); Chloride 107 mmol/L (98-107); Glucose 86 mg/dL (74-99); Sodium 141 mmol/L (137-145); Total Bilirubin 0.2 mg/dL (0.2-1.3); Total Protein 6.6 g/dL (6.3-8.2)
[2019-05-30] MEDS ORDERED: DEXAMETHASONE SOD PHOSPHATE 10 MG/ML 1 ML VIAL IV STA (21:40)
[2019-05-30] MEDS ORDERED: MORPHINE SULFATE 2 MG/ML SYRINGE IVP STA (21:40)
[2019-05-30 22:23] LABS: Appearance,Urine Clear (Clear); Bacteria,Urine Rare /hpf; Bilirubin,Urine Negative (Negative); Blood,Urine Large (Negative); Budding Yeast,Urine Occasional /hpf; Color,Urine Yellow; Glucose,Urine (UA) Negative (Negative); Ketones,Urine Negative (Negative); Leukocyte Esterase,Urine Small (Negative); Mucus,Urine Rare /hpf; Nitrite,Urine Negative (Negative); PH, Urine 6.5 (5.0-8.0); Protein,Urine Trace (Negative); RBC,Urine >182 /hpf (0-5); Specific Gravity,Urine 1.024 (1.001-1.035); Squamous Epithelial Cell,Urine 2 /hpf (0-4); Urobilinogen,Urine <2.0 mg/dL (<2.0); WBC,Urine 23 /hpf (0-5)
[2019-05-30 22:44] VITALS: RESP 18
--- NOTE | 2019-05-30 23:01 | ED ---
Headache HPI - General Chief Complaint: Headache Stated Complaint: Headaches, C section 10 days ago Time Seen by Provider: 05/30/19 19:29 Mode of arrival: ambulatory Limitations: no limitations - History of Present Illness Initial Comments: 34-year-old female patient who is 10 days after having a delivery presents to the emergency department today for evaluation of headache. Patient states that she developed headache 3 days after delivering. Patient states the headache has been present daily since then. States the pain worsens when she sits or stands up and does improve with lying down. Patient states that she has shooting pain from her low back up into her neck and the base of her skull. States her headache is mostly frontal. States she is mildly sensitive to light. Denies any blurred or double vision. Denies any numbness or tingling to the extremities. Denies any weakness. She denies any fever or chills. States her incision is healing well. She has no nausea, vomiting, diarrhea, or constipation. She is bottle feeding with formula. Patient denies any recent rash, shortness breath, chest pain, abdominal pain, diarrhea, constipation, back pain, hematuria, dysuria, urinary urgency, urinary frequency, or any other complaints. - Related Data Home Medications Medication Instructions Recorded Confirmed FLUoxetine HCL [PROzac] 40 mg PO HS 05/17/19 05/20/19 Cephalexin [Keflex] 500 mg PO 05/20/19 Allergies Allergy/AdvReac Type Severity Reaction Status Date / Time No Known Allergies Allergy Verified 05/30/19 19:23 Review of Systems ROS Statement: Those systems with pertinent positive or pertinent negative responses have been documented in the HPI. ROS Other: All systems not noted in ROS Statement are negative. Past Medical History Past Medical History: Hypertension Additional Past Medical History / Comment(s): Chronic back pain, gestational diabetes-diet control, high BP couple yrs ago, restless legs, varicose veins History of Any Multi-Drug Resistant Organisms: None Reported Past Surgical History: Section, Hernia Repair Past Anesthesia/Blood Transfusion Reactions: Previous Problems w/ Anesthesia, Motion Sickness Additional Past Anesthesia/Blood Transfusion Reaction / Comment(s): spinal headache after epidural- 1st epidural only worked on one side, another epidural did not work Past Psychological History: Anxiety, Depression Smoking Status: Current every day smoker Past Alcohol Use History: None Reported Past Drug Use History: None Reported - Past Family History Mother Family Medical History: Cancer, Coronary Artery Disease (CAD) Father Family Medical History: Cancer, Coronary Artery Disease (CAD) General Exam Limitations: no limitations General appearance: alert, in no apparent distress, other (Physical well- developed, well-nourished adult female patient in no acute distress. Vital signs upon presentation are temperature 97.6F, pulse 62, respirations 16, blood pressure 140/86, pulse ox 99% on room air.) Eye exam: Present: normal appearance, PERRL, EOMI. Absent: scleral icterus, conjunctival injection, nystagmus, periorbital swelling ENT exam: Present: normal exam, normal oropharynx, mucous membranes moist Respiratory exam: Present: normal lung sounds bilaterally. Absent: respiratory distress, wheezes, rales, rhonchi, stridor Cardiovascular Exam: Present: regular rate, normal rhythm, normal heart sounds. Absent: systolic murmur, diastolic murmur, rubs, gallop, clicks GI/Abdominal exam: Present: soft, normal bowel sounds. Absent: distended, tenderness, guarding, rebound, rigid Neurological exam: Present: alert, oriented X3, CN II-XII intact, other (Strength in all 4 extremities is 5/5.) Psychiatric exam: Present: normal affect, normal mood Skin exam: Present: warm, dry, intact, normal color. Absent: rash Course Vital Signs 05/30/19 05/30/19 05/31/19 19:24 22:43 00:42 Temperature 97.6 F 97.9 F Pulse Rate 62 54 L 56 L Respiratory 16 18 18 Rate Blood Pressure 140/86 158/90 153/93 O2 Sat by Pulse 99 99 98 Oximetry Medical Decision Making - Medical Decision Making 34-year-old female patient presents to the emergency department today for evaluation of headache. She is 10 days after delivery. Physical examination is unremarkable. She is neurologically intact with no focal deficits. She called her [employer] office nasal injury in for concern for spinal headache and possible blood patch. Labs reviewed and are unremarkable. She did have mild elevation and uric acid but other labs for preeclampsia were unremarkable. Trace protein in the urine. Patient does have some mild swelling to the feet but she reports this is much better than usual. She denies any di zziness, numbness, or tingling. I did IV fluids and medication to treat headache, does report improvement of symptoms. I did discuss blood patch procedure with the patient, she would rather treat with oral medications. She'll be discharged home at this time to follow-up with her primary care phys alfredo and her [employer] for recheck as soon as possible. Return parameters were discussed in detail. She verbalizes understanding and agrees with this plan. - Lab Data Result diagrams: 05/30/19 20:07 05/30/19 20:07 Lab Results 05/30/19 05/30/19 05/30/19 Range/Units 20:07 20:07 20:07 WBC 11.3 H (3.8-10.6) k/uL RBC 3.85 (3.80-5.40) m/uL Hgb 12.2 (11.4-16.0) gm/dL Hct 37.0 (34.0-46.0) % MCV 96.0 (80.0-100.0) fL MCH 31.7 (25.0-35.0) pg MCHC 33.0 (31.0-37.0) g/dL RDW 14.9 (11.5-15.5) % Plt Count 434 (150-450) k/uL Neutrophils % 67 % Lymphocytes % 23 % Monocytes % 4 % Eosinophils % 5 % Basophils % 1 % Neutrophils # 7.5 (1.3-7.7) k/uL Lymphocytes # 2.6 (1.0-4.8) k/uL Monocytes # 0.4 (0-1.0) k/uL Eosinophils # 0.5 (0-0.7) k/uL Basophils # 0.1 (0-0.2) k/uL Sodium 141 (137-145) mmol/L Potassium 4.0 (3.5-5.1) mmol/L Chloride 107 (98-107) mmol/L Carbon Dioxide 24 (22-30) mmol/L Anion Gap 10 mmol/L BUN 19 H (7-17) mg/dL Creatinine 0.85 (0.52-1.04) mg/dL Est GFR (CKD-EPI)AfAm >90 (>60 ml/min/1.73 sqM) Est GFR (CKD-EPI)NonAf >90 (>60 ml/min/1.73 sqM) Glucose 86 (74-99) mg/dL Uric Acid 7.8 H (3.7-7.4) mg/dL Calcium 9.1 (8.4-10.2) mg/dL Magnesium 1.8 (1.6-2.3) mg/dL Total Bilirubin 0.2 (0.2-1.3) mg/dL AST 20 (14-36) U/L ALT 20 (9-52) U/L Alkaline Phosphatase 91 (38-126) U/L Lactate Dehydrogenase 547 (313-618) U/L Total Protein 6.6 (6.3-8.2) g/dL Albumin 3.8 (3.5-5.0) g/dL Urine Color Urine Appearance (Clear) Urine pH (5.0-8.0) Ur Specific [place] (1.001-1.035) Urine Protein (Negative) Urine Glucose (UA) (Negative) Urine Ketones (Negative) Urine Blood (Negative) Urine Nitrite (Negative) Urine Bilirubin (Negative) Urine Urobilinogen (<2.0) mg/dL Ur Leukocyte Esterase (Negative) Urine RBC (0-5) /hpf Urine WBC (0-5) /hpf Ur Squamous Epith Cells (0-4) /hpf Urine Bacteria (None) /hpf Urine Mucus (None) /hpf Urine Yeast (Budding) (None) /hpf 05/30/19 Range/Units 21:41 WBC (3.8-10.6) k/uL RBC (3.80-5.40) m/uL Hgb (11.4-16.0) gm/dL Hct (34.0-46.0) % MCV (80.0-100.0) fL MCH (25.0-35.0) pg MCHC (31.0-37.0) g/dL RDW (11.5-15.5) % Plt Count (150-450) k/uL Neutrophils % % Lymphocytes % % Monocytes % % Eosinophils % % Basophils % % Neutrophils # (1.3-7.7) k/uL Lymphocytes # (1.0-4.8) k/uL Monocytes # (0-1.0) k/uL Eosinophils # (0-0.7) k/uL Basophils # (0-0.2) k/uL Sodium (137-145) mmol/L Potassium (3.5-5.1) mmol/L Chloride (98-107) mmol/L Carbon Dioxide (22-30) mmol/L Anion Gap mmol/L BUN (7-17) mg/dL Creatinine (0.52-1.04) mg/dL Est GFR (CKD-EPI)AfAm (>60 ml/min/1.73 sqM) Est GFR (CKD-EPI)NonAf (>60 ml/min/1.73 sqM) Glucose (74-99) mg/dL Uric Acid (3.7-7.4) mg/dL Calcium (8.4-10.2) mg/dL Magnesium (1.6-2.3) mg/dL Total Bilirubin (0.2-1.3) mg/dL AST (14-36) U/L ALT (9-52) U/L Alkaline Phosphatase (38-126) U/L Lactate Dehydrogenase (313-618) U/L Total Protein (6.3-8.2) g/dL Albumin (3.5-5.0) g/dL Urine Color Yellow Urine Appearance Clear (Clear) Urine pH 6.5 (5.0-8.0) Ur Specific [place] 1.024 (1.001-1.035) Urine Protein Trace H (Negative) Urine Glucose (UA) Negative (Negative) Urine Ketones Negative (Negative) Urine Blood Large H (Negative) Urine Nitrite Negative (Negative) Urine Bilirubin Negative (Negative) Urine Urobilinogen <2.0 (<2.0) mg/dL Ur Leukocyte Esterase Small H (Negative) Urine RBC >182 H (0-5) /hpf Urine WBC 23 H (0-5) /hpf Ur Squamous Epith Cells 2 (0-4) /hpf Urine Bacteria Rare H (None) /hpf Urine Mucus Rare H (None) /hpf Urine Yeast (Budding) Occasional H (None) /hpf Disposition Clinical Impression: Acute headache Disposition: HOME SELF-CARE Condition: Good Instructions (If sedation given, give patient instructions): Acute Headache (ED) Additional Instructions: Increase fluids. Take medications as directed. Follow-up through primary care physician for recheck in 1-2 days. Follow up with your OBGYN for recheck as soon as possible. Return to the emergency department immediately for any new, worsening, or concerning symptoms. Is patient prescribed a controlled substance at d/c from ED?: No Referrals: June Canchola MD [Primary Care Provider] - 1-2 days Time of Disposition: 00:14
[2019-05-30 23:13] LABS: Magnesium 1.8 mg/dL (1.6-2.3); Uric Acid 7.8 mg/dL (3.7-7.4)
[2019-05-31] MEDS ORDERED: ACET/COD 300 MG/30 MG STARTER PACK 6 TAB BTL PO STA (00:13)
[2019-05-31 00:43] VITALS: BP 153/93; PULSE 56; TEMP 97.9
== END 2019-05-31 00:46 | disposition home or self-care (01) ==
LOC: EC 19:22
DX: O90.89 Other complications of the puerperium, not elsewhere classified (principal); R51 Headache; R80.9 Proteinuria, unspecified; R82.998 Other abnormal findings in urine; M79.89 Other specified soft tissue disorders; M54.2 Cervicalgia; H53.149 Visual discomfort, unspecified; O99.345 Other mental disorders complicating the puerperium; F32.9 Major depressive disorder, single episode, unspecified; F41.9 Anxiety disorder, unspecified; F17.200 Nicotine dependence, unspecified, uncomplicated; O99.335 Smoking (tobacco) complicating the puerperium; Z79.899 Other long term (current) drug therapy
CPT/HCPCS: 36415; 80053; 83615; 83735; 84550; 85025; 81001; 99284; 96374; 96375 ×4; 96361; J1200; J1100; J2765; J1885; J2270; 87086